=== PATIENT | male | born 1965 | race Hispanic/Latino ===

== ENCOUNTER 2020-09-26 10:22 | Inpatient (IN) | payer BC ==
[2020-09-26] MEDS ORDERED: cefTRIAXone\\ROCEPHIN 1 GM VIAL ONE (11:40)
[2020-09-26] MEDS ORDERED: Azithromycin 500 MG VIAL ONE ×2 (11:40→11:49)
[2020-09-26] MEDS ORDERED: Dexamethasone 4 mg/ml Vial ONE (11:40)
[2020-09-26] MEDS ORDERED: Aspirin 325 MG TAB ONE (11:40)
[2020-09-26 11:49] LABS: Band 10 % (5-11); Hemoglobin 16.3 g/dL (14.0-18.0); Lymphocytes 36 % (21-51); MDiff Complete? YES; Mean Corpuscular HGB CONC 34.2 g/dL (32.0-36.0); Mean Corpuscular Volume 93.6 fL (78.0-98.0); Mean Platelet Volume 8.1 fL (7.4-10.4); Monocytes 6 % (0-10); Neutrophil 48 % (42-75); Platelet Count 282 thou/uL (130-400); RBC Distribution Width 12.6 % (11.5-14.5); Red Blood Cell (RBC) Count 5.09 mill/uL (4.70-6.10)
[2020-09-26 11:53] LABS: ALT (SGPT) 54 U/L (8-55); AST (SGOT) 64 U/L (5-34); Albumin 3.8 g/dL (3.5-5.0); Alkaline Phosphatase 39 U/L (40-110); Anion Gap 17 mmol/L (10-20); BUN (Urea Nitrogen) 40 mg/dL (8.4-25.7); Bilirubin, Total 0.7 mg/dL (0.2-1.2); CK (CPK) 849 U/L (30-200); Calc. Creatinine Clearance 0 mL/min (70-130); Calcium 8.3 mg/dL (7.8-10.44); Carbon Dioxide 19 mmol/L (22-29); Chloride 108 mmol/L (98-107); Globulin 4.4 g/dL (2.4-3.5); Glucose 150 mg/dL (70-105); Lipase 50 U/L (8-78); Protein, Total 8.2 g/dL (6.0-8.3); Sodium 141 mmol/L (136-145)
[2020-09-26] MEDS ORDERED: Iopamidol-370 76% 500 ML 1 ML ONE (12:37)
[2020-09-26] MEDS ORDERED: Enoxaparin Sodium 80 MG/0.8 ML SYRINGE ONE (14:38)
[2020-09-26] MEDS ORDERED: Sodium Chloride 0.9% 1,000 ML IV SCH (15:45)
[2020-09-26] MEDS ORDERED: Benzonatate 100 MG CAP PO PRN (16:24)
[2020-09-26] MEDS ORDERED: GUAIFENESIN SF SOLN 200 MG/10 ML UDCUP PO PRN (16:24)
[2020-09-26] MEDS ORDERED: Sodium Chloride 0.65% Nasal 44 ML BOT EA NARE PRN (16:24)
[2020-09-26] MEDS ORDERED: Calcium Carbonate 500 MG ChewTAB PO PRN (16:24)
[2020-09-26] MEDS ORDERED: Ondansetron ODT 4 MG TAB PO PRN (16:24)
[2020-09-26] MEDS ORDERED: Loperamide HCl 2 MG CAP PO PRN (16:24)
[2020-09-26] MEDS ORDERED: 1/2 NS w/KCL 20 mEq 1,000 ML IV SCH (16:24)
[2020-09-26] MEDS ORDERED: Potassium Chloride 20 MEQ TAB PO SCH (16:24)
[2020-09-26] MEDS ORDERED: Albuterol Sulfate 2.5 mg/3 ml Neb NEB PRN (16:24)
[2020-09-26] MEDS ORDERED: Cepastat Lozenges 1 LOZ PO PRN (16:24)
[2020-09-26] MEDS ORDERED: Acetaminophen 325 MG TAB PO PRN (16:24)
[2020-09-26] MEDS ORDERED: hydrALAZINE 20 MG/ML VIAL SLOW IVP PRN (16:24)
[2020-09-26] MEDS ORDERED: HYDROcodone/Acetaminophen 5/325 mg Tablet PO PRN (16:24)
[2020-09-26] MEDS ORDERED: Bisacodyl 5 MG TAB PO PRN (16:24)
[2020-09-26] MEDS ORDERED: Ondansetron PF 4 MG/2 ML Vial IVP PRN (16:24)
[2020-09-26] MEDS ORDERED: Loratadine 10 MG TAB PO PRN (16:24)
[2020-09-26] MEDS ORDERED: Senokot S 8.6-50 MG TAB PO PRN (16:24)
[2020-09-26 16:31] VITALS: BMI 28.1
[2020-09-27 05:56] LABS: #Lymphocytes 1.4 thou/uL (1.20-3.40); #Monocytes 0.4 thou/uL (0.11-0.59); #Neutrophils 5.7 thou/uL (1.40-6.50); %Basophils 0.1 % (0.0-1.0); %Lymphocytes 18.3 % (21.0-51.0); %Monocytes 5.2 % (0.0-10.0); %Neutrophils 76.4 % (42.0-75.0); Hemoglobin 14.8 g/dL (14.0-18.0); Mean Corpuscular HGB CONC 33.3 g/dL (32.0-36.0); Mean Corpuscular Hemoglobin 31.1 pg (27.0-31.0); Mean Corpuscular Volume 93.3 fL (78.0-98.0); Mean Platelet Volume 8.2 fL (7.4-10.4); Platelet Count 297 thou/uL (130-400); RBC Distribution Width 12.6 % (11.5-14.5); Red Blood Cell (RBC) Count 4.77 mill/uL (4.70-6.10); White Blood Cell (WBC) Count 7.4 thou/uL (4.8-10.8)
[2020-09-27] MEDS ORDERED: Potassium Chloride 20 MEQ TAB PO SCH (06:00)
[2020-09-27 06:23] LABS: CRP (Inflammatory) 11.98 mg/dL (= or < 0.5); Phosphorus 2.7 mg/dL (2.3-4.7)
[2020-09-27] MEDS: Enoxaparin Sodium 40 MG/0.4 ML SYRINGE SC SCH (09:15)
[2020-09-27] MEDS: Ascorbic Acid 500 mg Chewable Tablet PO SCH (09:15)
[2020-09-27] MEDS: Dexamethasone 4 mg/ml Vial SLOW IVP SCH (09:15)
[2020-09-27] MEDS: Cholecalciferol 1,000 UNITS (25 MCG) TAB PO SCH (09:15)
[2020-09-27] MEDS: Vitamin E 400 UNITS CAP PO SCH (09:18)
[2020-09-27] MEDS: Azithromycin 500 MG in Sodium Chloride 0.9% 250 ML 250 ML IVPB SCH (11:33)
[2020-09-27] MEDS ORDERED: cefTRIAXone\\ROCEPHIN 1 GM in Sodium Chloride 0.9% 100 ML IVPB SCH (13:00)
[2020-09-28 07:41] LABS: Anion Gap 17 mmol/L (10-20); BUN (Urea Nitrogen) 33 mg/dL (8.4-25.7); Calc. Creatinine Clearance 113 mL/min (70-130); Calcium 8.1 mg/dL (7.8-10.44); Carbon Dioxide 15 mmol/L (22-29); Chloride 117 mmol/L (98-107); Glucose 140 mg/dL (70-105); Potassium 3.6 mmol/L (3.5-5.1); Sodium 145 mmol/L (136-145)
[2020-09-28] MEDS: Vitamin E 400 UNITS CAP PO SCH (08:59)
[2020-09-28] MEDS: Ascorbic Acid 500 mg Chewable Tablet PO SCH (08:59)
[2020-09-28] MEDS: Cholecalciferol 1,000 UNITS (25 MCG) TAB PO SCH (09:00)
[2020-09-28] MEDS: Dexamethasone 4 mg/ml Vial SLOW IVP SCH (09:00)
[2020-09-28] MEDS: Enoxaparin Sodium 40 MG/0.4 ML SYRINGE SC SCH (09:00)
[2020-09-28] MEDS: Azithromycin 500 MG in Sodium Chloride 0.9% 250 ML 250 ML IVPB SCH (11:29)
[2020-09-28 13:58] VITALS: BP 140/90; TEMP 98.7
== END 2020-09-28 14:05 | disposition home or self-care (01) | DRG 177 ==
LOC: ERS 10:22 → T4-A 13:27
PROVIDERS: ADMIT Internal Medicine; ATTEND Internal Medicine
DX: U07.1 COVID-19 (principal); J12.82 Pneumonia due to coronavirus disease 2019; J96.01 Acute respiratory failure with hypoxia; N17.9 Acute kidney failure, unspecified; E87.2 Acidosis; R94.5 Abnormal results of liver function studies; K76.0 Fatty (change of) liver, not elsewhere classified; E87.6 Hypokalemia
CPT/HCPCS: 36415; 71045; 71275; 80048; 80053; 82550; 82728; 83690; 83735; 83880; 84100; 84484; 85007; 85025; 85027; 85379; 86140; 93005; 96365; 96372; 96375; J0456; J0696; J1100; J1650; J3490; J7050; Q9967